=== PATIENT | male | born 1975 | race Caucasian/White ===

== ENCOUNTER 2016-07-08 11:41 | Emergency (ER) | payer MEDICAID, OTHER ==
[~2016-07-08] VITALS: Ht 165.1 cm; Wt 90.9 kg
[2016-07-08 11:50] VITALS: BP 131/75
--- NOTE | 2016-07-08 11:54 | NUR ---
41M BIB FAMILY C/O LACERATION TO RT MIDDLE FINGER D/T CABINET FALLING ON FINGER AT WORK. PT DENIES ANY MEDICAL HISTORY AT THIS TIME. AAOX4 WITH EVEN AND STEADY GAIT; LUNGS CLEAR BL; HR EVEN AND REGULAR; PATIENT STATES PAIN OF 7/10 AT THIS TIME; VSS; PATIENT POSITIONED FOR COMFORT; HOB ELEVATED; BEDRAILS UP X2; BED DOWN. ER MD MADE AWARE OF PT STATUS.
--- NOTE | 2016-07-08 11:55 | NUR ---
ER MD DR QIU EVALUATING PT AT BEDSIDE
[2016-07-08] MEDS ORDERED: LIDOCAINE 1% 500 MG/50 ML VIAL INJ ONE (12:00)
--- NOTE | 2016-07-08 12:06 | NUR ---
X RAY AT BEDSIDE
--- NOTE | 2016-07-08 12:20 | NUR ---
GAVE REPORT TO SISSY RAMIREZ
[2016-07-08 12:52] VITALS: BP 131/75
--- NOTE | 2016-07-08 12:52 | NUR ---
Patient discharged with v/s stable. Written and verbal after care instructions given and explained. Patient verbalized understanding. Ambulatory with to car. All questions addressed prior to discharge. Advised to follow up with PMD.
== END 2016-07-08 12:52 | disposition home or self-care (01) ==
LOC: MED 11:41
DX: S61.212A Laceration without foreign body of right middle finger without damage to nail, initial encounter (principal); W20.8XXA Other cause of strike by thrown, projected or falling object, initial encounter; Y93.89 Activity, other specified; Y92.89 Other specified places as the place of occurrence of the external cause; Y99.0 Civilian activity done for income or pay
CPT/HCPCS: 12031; 73130; 90471; 90715; 99284; J2001; Q0092